=== PATIENT | male | born 1975 | race Caucasian/White ===

== ENCOUNTER 2018-09-17 14:46 | Inpatient (IN) | payer MEDICAID ==
[~2018-09-17] VITALS: Ht 162.6 cm; Wt 78.2 kg
[~2018-09-17 14:46] MED LIST: ACET325T33 PO; FOLI-49 PO; PANT40TA3 PO; PROP20TA4 PO; THIA100T10 PO
[2018-09-17 15:09] VITALS: Ht 162.6 cm; Wt 78.2 kg
[2018-09-17] MEDS ORDERED: ONDANSETRON 4 MG INJ IM STA (15:22)
--- NOTE | 2018-09-17 15:24 | ERD ---
ER Documentation Chief Complaint Chief Complaint BIB RA 81: ETOH intoxication found on streets. homeless. HPI 43-year-old man with history of alcoholism brought in by EMS for public intoxic ation. Patient admits to drinking alcohol today and denies suicidal homicidal ideation. Patient denies chest pain or shortness of breath but did have vomiting at the scene and was transported here without further complications. ROS All systems reviewed and are negative except as per history of present illness. Medications Home Meds Active Scripts Ondansetron Hcl* (Zofran*) 4 Mg Tablet, 4 MG PO Q6H PRN for NAUSEA AND OR VOMITING, #12 TAB Prov:HERON FRANCIS MD 09/17/18 Pantoprazole* (Protonix*) 40 Mg Tablet.dr, 40 MG PO DAILY, #30 TAB 2 Refills Prov:STEPHANIE PRINCE. 06/20/18 Propranolol Hcl* (Propranolol Hcl*) 20 Mg Tablet, 20 MG PO TID, #90 TAB 3 [facility] 06/20/18 Thiamine* (Thiamine*) 100 Mg Tablet, 100 MG PO DAILY, #30 TAB 2 Refills Prov:STEPHANIE PRINCE . 06/20/18 Folic Acid* (Folic Acid*) 1 Mg Tablet, 1 MG PO DAILY, #30 TAB 2 Refills Prov[facility]. 06/20/18 Acetaminophen* (Tylenol*) 325 Mg Tablet, 650 MG PO Q6H PRN for PAIN LEVEL 1-3 OR FEVER, #30 TAB Prov:STEPHANIE PRINCE . 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 Neck: Full range of motion. No meningismus. Resp: Clear to auscultation bilaterally Cardio: Tachycardic and regular, Abd: Soft, non tender, non distended. No guarding or rigidity to the abdomen Skin: No petechiae or rashes Back: No midline or flank tenderness Ext: No cyanosis, or edema Neur: Awake and alert x3, no focal deficits or facial asymmetry Psych: Normal Mood and Affect Results 24 hrs Current Medications Medications Dose Sig/Sandi Start Time Status Last (Trade) Ordered Route PRN Stop Time Admin Dose Reason Admin Ondansetron 8 mg ONCE STAT 09/17/18 DC 09/17/18 HCl (Zofran IM 15:22 15:41 Inj) 09/17/18 15:23 Procedures/MDM I administered Zofran 8 mg IM x1 observation Note: Time: 4.0 hours Family Hx: No Hypertension Evaluation: Multiple exams showed improving symptoms and no evidence of worsening mental status or continued vomiting. Differential diagnoses considered, included but not limited to acute coronary syndrome, pulmonary embolism, aortic dissection, abdominal aortic aneurysm, sepsis, stroke, meningitis, encephalitis, pneumonia, appendicitis, cholecystitis, bowel obstruction, pyelonephritis, nephrolithiasis, cystitis, as well as metabolic, hematologic, and electrolyte abnormalities. As well as abscess, cellulitis, fractures, and dislocations. Patient feels much better at this time, and vital signs are normal, symptoms have improved. I did give strict instructions to return to the ED if symptoms continue or worsen, patient will otherwise follow-up with primary care physician. Patient understood instructions and agreed to plan. Disclaimer: Inadvertent spelling and grammatical errors are likely due to EHR/dictation software use and do not reflect on the overall quality of patient care. Also, please note that the electronic time recorded on this note does not necessarily reflect the actual time of the patient encounter. Departure Diagnosis: Primary Impression: Alcoholic intoxication Complication of substance-induced condition: uncomplicated Qualified Codes: F10.920 - Alcohol use, unspecified with intoxication, uncomplicated Additional Impression: Vomiting Vomiting type: unspecified Vomiting Intractability: non-intractable Nausea presence: with nausea Qualified Codes: R11.2 - Nausea with vomiting, unspecified Condition: Good HERON FRANCIS MD Sep 17, 2018 15:24
[2018-09-17] MEDS ORDERED: ONDA4TAB8 PO (15:58)
[2018-09-18] VITALS (10 sets, daily range): BP systolic 134–143; BP diastolic 68–79; PULSE 101–126; RESP 18; BMI 29.6
--- NOTE | 2018-09-18 03:30 | EN ---
Date/Time of Note Date/Time of Note DATE: 09/18/18 TIME: 03:29 ER Progress Note I wanted to evaluate this patient and he had been here for approximately 12 hours. On my evaluation the patient was tachycardic, and was tremulous. I attempted to ambulate the patient multiple times however he said he cannot walk because he was extremely weak and was having pain in his left leg. X-rays were obtained and do not show any signs of fracture. The patient's blood alcohol level is still 220 despite being here for greater than 12 hours. This patient has been admitted in the past for alcohol withdrawal and he remains tachycardic and tremulous. The patient was given Ativan and IV fluids and will benefit from inpatient hospitalization for acute alcohol withdrawal. Const: Mild distress, tremulous Head: [Atraumatic] Eyes: [Normal Conjunctiva] ENT: [Normal External Ears, Nose and Mouth.] Neck: [Full range of motion. No meningismus.] Resp: [Clear to auscultation bilaterally] Cardio: Tachycardic, no murmurs Abd: [Soft, non tender, non distended. Normal bowel sounds] Skin: [No petechiae or rashes] Back: [No midline or flank tenderness] Ext: [No cyanosis, or edema] Neur: [Awake and alert] Psych: Agitated affect The patient will be admitted to panel physician Dr. Guadarrama Critical Care: Excluding all billable procedures Time: 44 minutes Treatments/Evaluations: Close monitoring and treatment of unstable vital signs, cardiorespiratory, and neurologic status, while maintaining tight balance of fluid, respiratory, and cardiac interventions. Admitting diagnosis: Acute alcohol withdrawal LEON REID DO Sep 18, 2018 03:30
[2018-09-18] MEDS ORDERED: SOD CHLORIDE 0.9% 1,000 ML IV STA (03:45)
[2018-09-18] MEDS ORDERED: DEXTROSE 5%-0.45% NACL 1,000 ML IV SCH (04:18)
[2018-09-18] MEDS ORDERED: LORAZEPAM 2 MG INJ IV ONE (04:30)
[2018-09-18] MEDS ORDERED: ACETAMINOPHEN 325 MG TAB PO PRN (04:30)
[2018-09-18] MEDS ORDERED: ONDANSETRON 4 MG INJ IV PRN (04:30)
[2018-09-18] MEDS: SOD CHLORIDE 0.9% 1,000 ML IV SCH ×3 (06:55→23:13)
--- NOTE | 2018-09-18 06:56 | HP ---
Date/Time of Note Date/Time of Note DATE: 09/18/18 TIME: 06:50 Assessment/Plan VTE Prophylaxis SCD applied (from Nsg): Yes Pharmacological prophylaxis: NA/contraindicated Pharm contraindication: thrombocytopenia Lines/Catheters IV Catheter Type (from Nrsg): Saline Lock Assessment/Plan Assessment/Plan 1. Alcoholic intoxication -Monitor for withdrawal -Banana bag alternating with IV fluid -Librium -As needed Ativan 2. Generalized and lower extremity weakness. X-ray of lower extremities negative -Likely related to decompensation and myopathy caused by alcohol -Physical therapy 3. Decompensated alcoholic liver cirrhosis, with pancytopenia and previous labs showing coagulopathy -Treat his alcohol intoxication for now 4. Pancytopenia: Alcohol related -No need for transfusion at this time 5. Alcohol abuse and homelessness -Social work consult -Abstinence from alcohol will be reinforced throughout hospitalization Result Diagram: 09/18/18 0347 09/18/187 Results 24hrs Laboratory Tests Test 09/18/18 03:47 White Blood Count 4.6 #L Red Blood Count 4.22 L Hemoglobin 11.1 L Hematocrit 33.7 L Mean Corpuscular Volume 79.9 L Mean Corpuscular Hemoglobin 26.3 L Mean Corpuscular Hemoglobin Concent 32.9 Red Cell Distribution Width 17.6 H Platelet Count 36 #L Mean Platelet Volume Immature Granulocytes % 0.400 Neutrophils % 66.1 Lymphocytes % 24.5 Monocytes % 8.2 Eosinophils % 0.4 Basophils % 0.4 Nucleated Red Blood Cells % 0.0 Immature Granulocytes # 0.020 Neutrophils # 3.1 Lymphocytes # 1.1 Monocytes # 0.4 Eosinophils # 0.0 Basophils # 0.0 Nucleated Red Blood Cells # 0.0 Sodium Level 139 Potassium Level 3.9 Chloride Level 103 Carbon Dioxide Level 24 Anion Gap 12 Blood Urea Nitrogen 14 Creatinine 0.50 L Est Glomerular Filtrat Rate mL/min > 60 Glucose Level 92 Calcium Level 7.9 L Total Bilirubin 2.1 H Direct Bilirubin 0.40 H Indirect Bilirubin 1.7 H Aspartate Amino Transf (AST/SGOT) 203 H Alanine Aminotransferase (ALT/SGPT) 101 H Alkaline Phosphatase 224 H Total Protein 8.0 Albumin 3.5 Globulin 4.50 H Albumin/Globulin Ratio 0.77 Salicylates Level < 1.0 L Acetaminophen Level < 10.0 L Ethyl Alcohol Level 221.0 H HPI/ROS Admit Date/Time Admit Date/Time Sep 18, 2018 at 04:18 Hx of Present Illness 43-year-old homeless male with known history of alcohol abuse, alcoholic liver cirrhosis and EtOH related pancytopenia. Patient was found intoxicated on the street. He complains of abdominal pain, vomiting, generalized weakness and difficulty with ambulation. Currently patient is drowsy/lethargic, but somehow arousable. He complains of headache and generalized weakness and abdominal pain. He also reported having had vomiting. He said he has been drinking almost on a daily basis. The patient has been admitted here and had multiple ER visits related to alcohol. Last hospitalization was about 3 months ago. In the ER, blood alcohol level was found to be elevated. He is still pancyt openic with abnormal liver chemistries. Patient was given IV fluid and Ativan in the ER. PMH/Family/Social Past Medical History Medical History: other (See HPI) Medications Current Medications Dextrose/Sodium Chloride 1,000 ml @ 80 mls/hr [id number] IV ; Start 09/18/18 at 04:18; Stop 09/18/18 at 16:47 Ondansetron HCl (Zofran Inj) 4 mg ER BRIDGE PRN IV NAUSEA AND/OR VOMITING; Start 09/18/18 at 04:30; Stop 09/19/18 at 04:29 Acetaminophen (Tylenol Tab) 650 mg ER BRIDGE PRN PO MILD PAIN(1-3)OR ELEVATED TEMP; Start 09/18/18 at 04:30; Stop 09/19/18 at 04:29 Sodium Chloride 1,000 ml @ 125 mls/hr Q8H IV ; Start 09/18/18 at 06:38 IV Flush (NS 3 ml) 3 ml PER PROTOCOL IV ; Start 09/18/18 at 07:00 Ondansetron HCl (Zofran Inj) 4 mg Q6H PRN IV NAUSEA AND/OR VOMITING; Start 09/18/18 at 07:00 Acetaminophen (Tylenol Tab) 650 mg Q6H PRN PO PAIN LEVEL 1-3 OR FEVER; Start 09/18/18 at 07:00 Multivitamins 10 ml/Thiamine HCl 100 mg/Folic Acid 1 mg/Sodium Chloride 1,011.2 ml @ 125 mls/ hr DAILY@09 IVPB ; Start 09/18/18 at 09:00; Stop 09/22/18 at 09:00; Status UNV Thiamine HCl (Vitamin B1) 100 mg DAILY PO ; Start 09/18/18 at 09:00 Lorazepam (Ativan) 1 mg Q3H PRN IV ANXIETY; Start 09/18/18 at 07:00 Lorazepam (Ativan) 2 mg Q2H PRN IV ETOH W/D; Start 09/18/18 at 07:00 Chlordiazepoxide (Librium) 75 mg TID PO ; Start 09/18/18 at 09:00 Coded Allergies: No Known Allergy (Unverified , 09/17/18) Past Surgical History Past Surgical Hx: other (See HPI) Family History Significant Family History: no pertinent family hx Social History Alcohol Use: heavy Smoking Status: Never smoker Drug Use: other (Unknown) Exam/Review of Systems Vital Signs Vitals Vital Signs Date Temp Pulse Resp B/P (MAP) Pulse Ox O2 O2 Flow FiO2 Time Delivery Rate 09/18/18 98.4 110 18 139/79 99 Room Air 05:25 (99) Exam Constitutional: other (Lethargic, but arousable) Head: other (Crusted lesion on the middle of the forehead/frontal scalp) Respiratory: clear to auscultation, normal air movement Cardiovascular: other (Tachycardic regular rhythm) Gastrointestinal: soft Extremities: normal pulses NIEVES SOLOMON MD Sep 18, 2018 06:56
[2018-09-18] MEDS ORDERED: NACL 0.9% 3 ML SYG IV SCH (07:00)
[2018-09-18] MEDS ORDERED: LORAZEPAM 2 MG INJ IV PRN ×2 (07:00)
--- NOTE | 2018-09-18 07:38 | NUR ---
RN END OF SHIFT NOTE PATIENT ALERT AND ORIENTED X 4, NEW ADMISSION, DENIED PAIN, ABLE TO REPOSITION SELF, VITAL SIGNS WITHIN NORMAL LIMIT, RUNNING NS AT 125 ML PER HOUR AT THIS TIME. 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 BED IN THE LOWEST POSITION WITH BRAKES ENGAGED, HOURLY ROUNDING AND BED ALARM IN PLACE. ENDORSED TO DAY SHIFT RN.
[2018-09-18] MEDS: THIAMINE 100 MG TAB PO SCH (08:18)
[2018-09-18] MEDS: CHLORDIAZEPOXIDE 25 MG CAP PO SCH ×3 (08:18→23:12)
[2018-09-18] MEDS: MULTIVITAMINS 10 ML, FOLIC ACID 1 MG in SOD CHLORIDE 0.9% 1,000 ML IVPB SCH (10:05)
--- NOTE | 2018-09-18 10:32 | NUR ---
SS Note: SS Consult Pt's a 43 y/o male w/ PMH of ETOH, presenting w/ Alchol Intoxication. Pt's A/OX4, ambulatory and resting quietly in bed. Pt's homeless x1 month, makes own medical decisions and contracts for safety. Pt has [employer] insurance, denies having income, AD, DPOA/DME's, drinks numerous beers throughout the day w/ a few shots of whiskey. Pt has a sister, Kell that lives in [place], [place] but, cannot reside w/ her, contacts her from time to time. Pt plans to return to previous living arrangement upon d/c, transportation will be provided by bus, SWer will assist pt w/ acquiring clean clothes.
--- NOTE | 2018-09-18 11:24 | PN ---
Date/Time of Note Date/Time of Note DATE: 09/18/18 TIME: 11:20 Assessment/Plan VTE Prophylaxis Risk score (from Ns)>0 risk: 2 SCD applied (from Ns): Yes Pharmacological prophylaxis: other Lines/Catheters [facility] Per[facility] IV Assessment/Plan Hospital Course S: No acute events overnight, still on banana bag, taking Librium. O: VS - see below PE: Gen: Mild distress, lying in bed Head: Atraumatic Eyes: Normal Conjunctiva ENT: Normal External Ears, Nose and Mouth. Neck: Supple Resp: Clear to auscultation bilaterally Cardio: S1, S2, no murmurs Abd: Soft, non tender, non distended. Normal bowel sounds Ext: No lower extremity edema bilaterally Neur: No focal deficits Assessment/Plan: 43-year-old male who presents with: 1. Alcoholic intoxication -BAL significantly elevated on admission -Monitor for withdrawal -Continue banana bag alternating with IV fluid -Continue Librium and as needed Ativan 2. Generalized and lower extremity weakness. X-ray of lower extremities negative-Likely related to decompensation and myopathy caused by alcohol -We will obtain physical therapy consult 3. Decompensated alcoholic liver cirrhosis, with pancytopenia and previous labs showing coagulopathy -Treat his alcohol intoxication for now, monitor 4. Pancytopenia: Alcohol related-No need for transfusion at this time -Monitor 5. Alcohol abuse and homelessness -Follow-up results from social work consult -Abstinence from alcohol will be reinforced throughout hospitalization Result Diagram: 09/18/18 0347 09/18/18 0347 Results 24hrs Laboratory Tests Test 09/18/18 03:47 White Blood Count 4.6 #L Red Blood Count 4.22 L Hemoglobin 11.1 L Hematocrit 33.7 L Mean Corpuscular Volume 79.9 L Mean Corpuscular Hemoglobin 26.3 L Mean Corpuscular Hemoglobin Concent 32.9 Red Cell Distribution Width 17.6 H Platelet Count 36 #L Mean Platelet Volume Immature Granulocytes % 0.400 Neutrophils % 66.1 Lymphocytes % 24.5 Monocytes % 8.2 Eosinophils % 0.4 Basophils % 0.4 Nucleated Red Blood Cells % 0.0 Immature Granulocytes # 0.020 Neutrophils # 3.1 Lymphocytes # 1.1 Monocytes # 0.4 Eosinophils # 0.0 Basophils # 0.0 Nucleated Red Blood Cells # 0.0 Sodium Level 139 Potassium Level 3.9 Chloride Level 103 Carbon Dioxide Level 24 Anion Gap 12 Blood Urea Nitrogen 14 Creatinine 0.50 L Est Glomerular Filtrat Rate mL/min > 60 Glucose Level 92 Calcium Level 7.9 L Total Bilirubin 2.1 H Direct Bilirubin 0.40 H Indirect Bilirubin 1.7 H Aspartate Amino Transf (AST/SGOT) 203 H Alanine Aminotransferase (ALT/SGPT) 101 H Alkaline Phosphatase 224 H Total Protein 8.0 Albumin 3.5 Globulin 4.50 H Albumin/Globulin Ratio 0.77 Salicylates Level < 1.0 L Acetaminophen Level < 10.0 L Ethyl Alcohol Level 221.0 H Exam/Review of Systems Vital Signs Vitals Vital Signs Date Temp Pulse Resp B/P (MAP) Pulse Ox O2 O2 Flow FiO2 Time Delivery Rate 09/18/18 97.4 105 18 136/69 96 Room Air 11:13 (91) Medications Medications Current Medications Sodium Chloride 1,000 ml @ 125 mls/hr Q8H IV Last administered on 09/18/18at 06:55; Admin Dose 125 MLS/HR; Start 09/18/18 at 06:38 IV Flush (NS 3 ml) 3 ml PER PROTOCOL IV ; Start 09/18/18 at 07:00 Ondansetron HCl (Zofran Inj) 4 mg Q6H PRN IV NAUSEA AND/OR VOMITING; Start 09/18/18 at 07:00 Acetaminophen (Tylenol Tab) 650 mg Q6H PRN PO PAIN LEVEL 1-3 OR FEVER; Start 09/18/18 at 07:00 Multivitamins 10 ml/Folic Acid 1 mg/Sodium Chloride 1,010.2 ml @ 125 mls/ hr DAILY@09 IVPB Last administered on 09/18/18at 10:05; Admin Dose 125 MLS/HR; Start 09/18/18 at 09:00; Stop 09/22/18 at 09:00 Thiamine HCl (Vitamin B1) 100 mg DAILY PO Last administered on 09/18/18at 08:18; Admin Dose 100 MG; Start 09/18/18 at 09:00 Lorazepam (Ativan) 1 mg Q3H PRN IV ANXIETY; Start 09/18/18 at 07:00 Lorazepam (Ativan) 2 mg Q2H PRN IV ETOH W/D; Start 09/18/18 at 07:00 Chlordiazepoxide (Librium) 75 mg TID PO Last administered on 09/18/18at 08:18; Admin Dose 75 MG; Start 09/18/18 at 09:00 CARMEN JIMÉNEZ Sep 18, 2018 11:24
[2018-09-19] VITALS (12 sets, daily range): BP systolic 131–175; BP diastolic 70–89; PULSE 91–127; RESP 18–19
--- NOTE | 2018-09-19 06:29 | NUR ---
Pt. had an uneventful night, no complaints, no anxiety, no s/s of withdrawal, S. tach 120- 130 , the rest of the V/S are normal, SR. Lab called for platelet ct. this AM of 20,000, texted to Dr. Guadarrama; no bleeding noted. Addendum: 09/19/18 at 0653 by CHEY HONG RN Correction : Baltazar : S Tach 120 - 130.
[2018-09-19] MEDS: SOD CHLORIDE 0.9% 1,000 ML IV SCH ×3 (06:38→17:44)
[2018-09-19] MEDS: THIAMINE 100 MG TAB PO SCH (09:29)
[2018-09-19] MEDS: CHLORDIAZEPOXIDE 25 MG CAP PO SCH ×3 (09:29→20:37)
[2018-09-19] MEDS: MULTIVITAMINS 10 ML, FOLIC ACID 1 MG in SOD CHLORIDE 0.9% 1,000 ML IVPB SCH (09:29)
--- NOTE | 2018-09-19 09:40 | NUR ---
Nurse note pt working with the physical therapist, up and out of bed HR up to 140s when the laboratory monitor called me checked on the pt. he states he is okay Dr. Stoner aware also notified Dr. Stoner regarding platelet at 20 today
--- NOTE | 2018-09-19 10:36 | NUR ---
PT [facility] Patient: Darnell Peraza : 1975 Age/Sex: 43/M Unit#: [id number] Room/Bed: [facility]/A User: Gurdeep Malhotra PT Date: 09/19/18 09:40 Type: PT Technical Record Therapy day number 1 Evaluation Start Time 09:40 Evaluation Total Time 0 min Subjective Current complaint of pain Pain Scale NUMERIC Pain Intensity 5 (0-10) Patient Stated Goal for Pain Relief 0 (0-10) Pain Level Comment abdominal pain, B thigh pain Pre Treatment Vital Signs Stable Yes - 135/69, 117bpm. 97%O2 sats on RA Exercise Assessment Label Bilat Lower Extremity Exercise Type Active ROM Additional Exercise Comments semi-supine APs, heel slides Supine to Sit Moderate Assist Transfer Sit to Stand Ability Moderate Assist Bed Mobility Sit to Supine Moderate Assist Sitting Tolerance 15 min Additional Mobility Comments frequent verbal cues Patient uses wheelchair Not Applicable Additional Gait Comments TBA Static Sitting Balance Fair plus Dynamic Sitting Balance Fair Standing Static Balance Fair minus Additional Balance Assessments Comments FWW Safety Judgement Poor Activity Tolerance Poor Equipment Present A pump IV pump Post Treatment Pain Intensity 5 0-10 Variance Documentation SEE PT EVAL Additional Post Treatment Comment vomiting PT Technical Record Comment PT EVAL Pt is a 43 yo M with PMH of alcohol abuse, liver cirrhosis, EtOH related pancytopenia who was found intoxicated on street with complaints of abdominal pain, vomitting, and generalized weakness with difficulty ambulating. Pt received in 6W, telemetry. Precautions: Fall precautions PLOF: Per EMR, pt is homeless. Pt reports he was ambulatory without AD prior to admission. CLOF: FLAKITO Villegas cleared pt for PT evaluation. Pt received semi-supine in bed sleeping, easily roused, vitals assessed and stable. Communication via phone pharmaceutical operator (YI). Pt appeared lethargic throughout, difficulty keeping eyes open. Noted with strength assessment pt reported "no strength" with notable strength deficits B (<3/5), R-side more limited than L. Bed mobility, transfer and balance assessment as above. Noted following 2nd attempt at sit to stand, pt proceeded to dry heave and vomit, HR noted to increase to as high as 160. Pt returned to bed, all needs in reach, no signs of distress, HR at 125 bpm, bed alarm activated. RN notified of pt's status. Recommendation: Pt tolerated PT evaluation poorly, having bout of emesis following sit to stand attempt. Pt demonstrates generalized weakness moderately limiting bed mobility and ability to transfer. Unable to attempt gait at this time due to weakness. Pt will benefit from additional skilled PT services during hospital stay for further strengthening and to maximize independence prior to d/c. D/c recommendation per social work/case management. Pt may need FWW. Plan: Continue c PT POC (Daily x 5)
--- NOTE | 2018-09-19 14:59 | PN ---
Date/Time of Note Date/Time of Note DATE: 09/19/18 TIME: 14:54 Assessment/Plan VTE Prophylaxis Risk score (from [facility] [place])>0 risk: 1 SCD applied (from [facility] [place]): Yes Pharmacological prophylaxis: NA/contraindicated Pharm contraindication: thrombocytopenia Lines/Catheters IV Catheter Type (from [facility]): Peripheral IV Assessment/Plan Hospital Course # Alcoholic intoxication - BAL significantly elevated on admission - Patient was started on Librium on admission; will begin taper. - Currently no S/Sx of withdrawal # Generalized and lower extremity weakness. 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 # Decompensated alcoholic liver cirrhosis, with pancytopenia and previous labs showing coagulopathy - Advised patient on alcohol cessation. # Pancytopenia: Alcohol/cirrhosis related -No need for transfusion at this time # Alcohol abuse and homelessness -Follow-up results from social work consult -Abstinence from alcohol will be reinforced throughout hospitalization Result Diagram: 09/19/18 0522 09/19/18 0522 Results 24hrs Laboratory Tests Test 09/19/18 05:22 White Blood Count 2.1 #L Red Blood Count 3.97 L Hemoglobin 10.3 L Hematocrit 32.4 L Mean Corpuscular Volume 81.6 L Mean Corpuscular Hemoglobin 25.9 L Mean Corpuscular Hemoglobin Concent 31.8 L Red Cell Distribution Width 17.1 H Platelet Count 20 #*L Mean Platelet Volume Immature Granulocytes % 0.500 H Neutrophils % Segmented Neutrophils % (Manual) 73 Band Neutrophils % (Manual) 2 Lymphocytes % Lymphocytes % (Manual) 10 L Monocytes % Monocytes % (Manual) 9 Eosinophils % Eosinophils % (Manual) 3 Basophils % Basophils % (Manual) 1 Myelocytes % (Manual) 2 H Nucleated Red Blood Cells % 0.0 Immature Granulocytes # 0.010 Neutrophils # Neutrophils # (Manual) 1.5 L Band Neutrophils # 0.0 Lymphocytes (Manual) 0.2 L Lymphocytes # Monocytes # Monocytes # (Manual) 0.1 L Eosinophils # Basophils # Basophils # (Manual) 0.0 Myelocytes # 0.0 Nucleated Red Blood Cells # Platelet Estimate SIG DECREASED Giant Platelets 1 H Polychromasia 3+ Anisocytosis 1+ Prothrombin Time 18.5 H Prothrombin Time Ratio 1.4 INR International Normalized Ratio 1.53 Activated Partial Thromboplast Time 37.8 H Sodium Level 135 Potassium Level 3.6 Chloride Level 104 Carbon Dioxide Level 22 Anion Gap 9 Blood Urea Nitrogen 11 Creatinine 0.44 L Est Glomerular Filtrat Rate mL/min > 60 Glucose Level 84 Calcium Level 7.9 L Phosphorus Level 3.4 Magnesium Level 1.8 Total Bilirubin 2.2 H Direct Bilirubin 0.30 H Indirect Bilirubin 1.9 H Aspartate Amino Transf (AST/SGOT) 167 H Alanine Aminotransferase (ALT/SGPT) 90 H Alkaline Phosphatase 193 H Total Protein 7.2 Albumin 3.0 L Globulin 4.20 H Albumin/Globulin Ratio 0.71 Subjective 24 Hr Interval Summary Free Text/Dictation No acute overnight events. Patient sitting up in bed feeding self lunch. Exam/Review of Systems Vital Signs Vitals Vital Signs Date Temp Pulse Resp B/P (MAP) Pulse Ox O2 O2 Flow FiO2 Time Delivery Rate 09/19/18 104 12:00 09/19/18 98.9 18 138/74 98 11:19 (95) 09/18/18 Room Air 15:10 Intake and Output 09/18/18 09/18/18 09/19/18 1515:00 23:00 07:00 IntakeIntake Total 375 ml 1625 ml 1500.2 ml OutputOutput Total 500 ml 570 ml BalanceBalance 375 ml 1125 ml 930.2 ml Exam Gen: Overweight man in no acute distress, very poorly groomed, sitting up in bed eating lunch. Head: No abrasions, atraumatic. Eyes: Mild icterus, no injection. ENT: Normal External Ears, Nose and Mouth. Resp: Clear to auscultation bilaterally Cardio:S1, S2, no murmurs Abd: Soft, non tender, non distended. Normal bowel sounds Ext: No lower extremity edema bilaterally Neuro: No tongue fasciculations or tremors. Medications Medications Current Medications Sodium Chloride 1,000 ml @ 125 mls/hr Q8H IV Last administered on 09/18/18at 23:13; Admin Dose 125 MLS/HR; Start 09/18/18 at 06:38 IV Flush (NS 3 ml) 3 ml PER PROTOCOL IV ; Start 09/18/18 at 07:00 Ondansetron HCl (Zofran Inj) 4 mg Q6H PRN IV NAUSEA AND/OR VOMITING; Start 09/18/18 at 07:00 Acetaminophen (Tylenol Tab) 650 mg Q6H PRN PO PAIN LEVEL 1-3 OR FEVER; Start 09/18/18 at 07:00 Multivitamins 10 ml/Folic Acid 1 mg/Sodium Chloride 1,010.2 ml @ 125 mls/ hr DAILY@09 IVPB Last administered on 09/19/18at 09:29; Admin Dose 125 MLS/HR; Start 09/18/18 at 09:00; Stop 09/22/18 at 09:00 Thiamine HCl (Vitamin B1) 100 mg DAILY PO Last administered on 09/19/18at 09:29; Admin Dose 100 MG; Start 09/18/18 at 09:00 Lorazepam (Ativan) 1 mg Q3H PRN IV ANXIETY; Start 09/18/18 at 07:00 Lorazepam (Ativan) 2 mg Q2H PRN IV ETOH W/D; Start 09/18/18 at 07:00 Chlordiazepoxide (Librium) 75 mg TID PO Last administered on 09/19/18at 12:30; Admin Dose 75 MG; Start 09/18/18 at 09:00 BRISA KIMBLE MD Sep 19, 2018 14:59
--- NOTE | 2018-09-19 17:00 | NUR ---
endorse to FLAKITO Henry pt is stable Addendum: 09/19/18 at 1811 by LORRIE NASH RN wrong pt
[2018-09-19] MEDS: ONDANSETRON 4 MG INJ IV PRN (17:48)
--- NOTE | 2018-09-19 19:42 | NUR ---
EOSS pt is alert and orientedx4, on room air, stable hourly rounding done pt c/o nausea once and zofran given, no other complaints throughout the day bed alarm on IV fluids running endorse to oncoming shift
[2018-09-20] VITALS (12 sets, daily range): BP systolic 115–137; BP diastolic 63–77; PULSE 96–115; RESP 18–20
[2018-09-20] MEDS: SOD CHLORIDE 0.9% 1,000 ML IV SCH ×3 (03:52→17:54)
--- NOTE | 2018-09-20 06:35 | NUR ---
EOSS N: Librium 50 therapy continued. A&Ox2-3, lethargic, arousable to touch/verbal. R: RA CV: NSR, ST. Loud holosystolic murmur. GI/: Pt is continent, but was found with chux covered in urine. Incontinent intermittently? MS: Pt remains in bed, able to turn self. Too weak for ambulation at this time, most likely r/t myopathy secondary to ETOH. POC: IV fluid continued. PT/SW consults. Alcohol detox, W/D treatment. Vitamin therapy. All of patient's needs attended to. Bed in locked and low position. Bed alarm on at all times. Will endorse to AM nurse.
[2018-09-20] MEDS: CHLORDIAZEPOXIDE 25 MG CAP PO SCH ×2 (08:47→21:28)
[2018-09-20] MEDS: MULTIVITAMINS 10 ML, FOLIC ACID 1 MG in SOD CHLORIDE 0.9% 1,000 ML IVPB SCH (08:47)
[2018-09-20] MEDS: THIAMINE 100 MG TAB PO SCH (08:47)
--- NOTE | 2018-09-20 14:00 | NUR ---
PT NOTE [facility] Patient: Darnell Peraza : 1975 Age/Sex: 43/M Unit#: [id number] Room/Bed: [employer]/A User: Narcisa Landis PTA Date: 09/20/18 14:00 Type: PT Technical Record Therapy day number 2 Subjective Current complaint of pain Pain Scale NUMERIC Pain Intensity 5 (0-10) Patient Stated Goal for Pain Relief 0 (0-10) Pain Level Comment "everywhere" Pre Treatment Vital Signs Stable Yes - 137/71 91% on RA 117bpm Transfer Training Start Time 13:30 Supine to Sit Contact Guard Assist Transfer Sit to Stand Ability Minimum Assist Bed Mobility Sit to Supine Minimum Assist Transfer Training End Time 13:45 Total Transfer Training Time 15 min (8-127) Patient uses wheelchair Not Applicable Gait Training Start Time 13:45 Gait Assist Levels Minimum Assist Assistive Devices Front Wheel Walker Ambulation Distance 10 feet Additional Gait Comments slow farshad, dec step length/stride, low foot clearance, absent heel-toe Gait Training End Time 14:00 Total Gait Training Treatment Time 15 min (8-127) Static Sitting Balance Fair plus Dynamic Sitting Balance Fair Standing Static Balance Fair minus Dynamic Standing Balance Fair minus Additional Balance Assessments Comments FWW Safety Judgement Poor Activity Tolerance Fair Equipment Present A pump IV pump Post Treatment Pain Intensity 5 0-10 Total Treament Time 30 min (8-127) Total Minutes 30 Total Units 2 PT Technical Record Comment S: FLAKITO Villegas cleared pt for PT. Pt c/o 5/10 pain, "everywhere." Agreeable to tx O: Received pt sleeping in semifowler. VC/TC to rouse. See above for assist levels. Pretx VS; 137/71 91% 117bpm. Pt very slow moving during mobility. VS sitting EOB; 119/68 96% 119bpm. Gait training x 10' and presented with slow farshad, decreased step length/stride, low foot clearance, and absent heel-toe sequencing. Instructed pt on proper gait sequencing, poor return. REturned pt back to room/bed due to pain. Positioned pt to comfort in semifowler. Call light/phone within reach. Bed alarm on. Needs met. RN informed of pt status and PT activities A: Fair tolerance to tx. Improved assistance throughout from ModA to Min/CGA. Tolerated gait training P: Continue w/ POC and progress as tolerated
[2018-09-20] MEDS: ACETAMINOPHEN 325 MG TAB PO PRN (14:02)
--- NOTE | 2018-09-20 14:12 | PN ---
Date/Time of Note Date/Time of Note DATE: 09/20/18 TIME: 14:10 Assessment/Plan VTE Prophylaxis Risk score (from [facility] [place])>0 risk: 1 SCD applied (from [facility] [place]): Yes Pharmacological prophylaxis: NA/contraindicated Pharm contraindication: thrombocytopenia Lines/Catheters IV C[facility]ter Type (from [facility]): Peripheral IV Assessment/Plan Hospital Course # Alcoholic intoxication - BAL significantly elevated on admission - Patient was started on Librium on admission; now tapering. - Currently no S/Sx of withdrawal # Generalized and lower extremity weakness. 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 # Decompensated alcoholic liver cirrhosis, with pancytopenia and previous labs showing coagulopathy - Advised patient on alcohol cessation. # Pancytopenia: Alcohol/cirrhosis related -No need for transfusion at this time # Alcohol abuse and homelessness -Abstinence from alcohol will be reinforced throughout hospitalization Dispo: Able to walk 10 feet with PT this afternoon. Anticipate discharge tomorrow. Result Diagram: 09/19/1852109/19/18521 Subjective 24 Hr Interval Summary Free Text/Dictation No acute overnight events. Patient lying flat in bed. Exam/Review of Systems Vital Signs Vitals Vital Signs Date Temp Pulse Resp B/P (MAP) Pulse Ox O2 O2 Flow FiO2 Time Delivery Rate 09/20/18 100 12:00 09/20/18 98.8 18 132/76 96 Room Air 11:33 (94) Intake and Output 09/19/18 09/19/18 09/20/18 1515:00 23:00 07:00 IntakeIntake Total 1700 ml 1625 ml OutputOutput Total 600 ml BalanceBalance 1100 ml 1625 ml Exam Gen: Overweight man in no acute distress, very poorly groomed, sitting up in bed eating lunch. Head: No abrasions, atraumatic. Eyes: Mild icterus, no injection. ENT: Normal External Ears, Nose and Mouth. Resp: Clear to auscultation bilaterally Cardio:S1, S2, no murmurs Abd: Soft, non tender, non distended. Normal bowel sounds Ext: No lower extremity edema bilaterally Neuro: No tongue fasciculations or tremors. Medications Medications Current Medications Sodium Chloride 1,000 ml @ 125 mls/hr Q8H IV Last administered on 09/20/18at 03:52; Admin Dose 125 MLS/HR; Start 09/18/18 at 06:38 IV Flush (NS 3 ml) 3 ml PER PROTOCOL IV ; Start 09/18/18 at 07:00 Ondansetron HCl (Zofran Inj) 4 mg Q6H PRN IV NAUSEA AND/OR VOMITING Last administered on 09/19/18at 17:48; Admin Dose 4 MG; Start 09/18/18 at 07:00 Acetaminophen (Tylenol Tab) 650 mg Q6H PRN PO PAIN LEVEL 1-3 OR FEVER Last administered on 09/20/18at 14:02; Admin Dose 650 MG; Start 09/18/18 at 07:00 Multivitamins 10 ml/Folic Acid 1 mg/Sodium Chloride 1,010.2 ml @ 125 mls/ hr DAILY@09 IVPB Last administered on 09/20/18at 08:47; Admin Dose 125 MLS/HR; Start 09/18/18 at 09:00; Stop 09/22/18 at 09:00 Thiamine HCl (Vitamin B1) 100 mg DAILY PO Last administered on 09/20/18at 08:47; Admin Dose 100 MG; Start 09/18/18 at 09:00 Lorazepam (Ativan) 1 mg Q3H PRN IV ANXIETY; Start 09/18/18 at 07:00 Lorazepam (Ativan) 2 mg Q2H PRN IV ETOH W/D; Start 09/18/18 at 07:00 Chlordiazepoxide (Librium) 50 mg BID PO Last administered on 09/20/18 08:47; Admin Dose 50 MG; Start 09/19/18 at 21:00 BRISA KIMBLE MD Sep 20, 2018 14:12
--- NOTE | 2018-09-20 18:31 | NUR ---
EOSS pt is alert and orientedx4, on room air, stable he worked with physical therapy today pending d/c for tomorrow per Dr. Stoner no new issues at this time hourly rounding done
[2018-09-21] VITALS (12 sets, daily range): BP systolic 126–136; BP diastolic 67–82; PULSE 78–115; RESP 18–20
[2018-09-21] MEDS: SOD CHLORIDE 0.9% 1,000 ML IV SCH (02:59)
--- NOTE | 2018-09-21 06:39 | NUR ---
EOSS N: Still lethargic, noticeably more alert than previous shift. R: RA, saturating well. CV: NSR GI/: Ambulates 1x assist, mild weakness BLE, slow movements. Bed alarm placed due to pt's unsteady gait. Pt has been seen by PT already. Uses urinal as well. POC: DC today per Dr. Stoner
[2018-09-21] MEDS: CHLORDIAZEPOXIDE 25 MG CAP PO SCH (08:34)
[2018-09-21] MEDS: THIAMINE 100 MG TAB PO SCH (08:34)
[2018-09-21] MEDS: MULTIVITAMINS 10 ML, FOLIC ACID 1 MG in SOD CHLORIDE 0.9% 1,000 ML IVPB SCH (08:35)
--- NOTE | 2018-09-21 10:54 | NUR ---
PT NOTE [facility] Patient: Darnell Peraza : 1975 Age/Sex: 43/M Unit#: [id number] Room/Bed: 610/A User: Gurdeep Malhotra PT Date: 09/21/18 10:16 Type: PT Technical Record Therapy day number 3 Subjective Potential for pain Pain Scale FACES Pain Intensity 0 (0-10) Patient Stated Goal for Pain Relief 0 (0-10) Pain Level Comment no indication of pain Pre Treatment Vital Signs Stable Yes Transfer Training Start Time 10:16 Supine to Sit Minimum Assist Transfer Sit to Stand Ability Stand by Assist Bed Mobility Sit to Supine Minimum Assist Bed Transfer Ability Minimum Assist Chair Transfer Ability Minimum Assist Sitting Tolerance 15 min Additional Mobility Comments verbal cues for safety/hand placement Transfer Training End Time 10:40 Total Transfer Training Time 24 min (8-127) Patient uses wheelchair Not Applicable Gait Training Start Time 10:40 Gait Assist Levels Stand by Assist Assistive Devices Front Wheel Walker Ambulation Distance 18 feet Additional Gait Comments very very slow farshad, verbal cues to continue, decreased step length/heel Gait Training End Time 10:54 Total Gait Training Treatment Time 14 min (8-127) Static Sitting Balance Fair plus Dynamic Sitting Balance Fair plus Standing Static Balance Fair Dynamic Standing Balance Fair Additional Balance Assessments Comments FWW Safety Judgement Poor Activity Tolerance Fair Equipment Present A pump Post Treatment Pain Intensity 0 0-10 Total Treament Time 38 min (8-127) Total Minutes 38 Total Units 3 PT Technical Record Comment S: Pt very slow-moving, requires frequent verbal cues to continue with tasks, appears very fatigued O: RN Shade cleared pt for PT session. Pt received semi-supine in bed, sleeping, easy roused. Pt participated in interventions above, able to amb to restroom with SBA, very very slow farshad, frequent verbal cues to continue, no instances of LOB. Pt able to toilet with SPV. Pt returned to bed, all needs in reach, no signs of distress, bed alarm activated. RN notified of pt's status. A: Pt demonstrates improved activity tolernace, able to amb 18' x 2 with FWW and without assistance, though requires frequent verbal cues to continue/safety. Continues to require min assistance for OOB, stating "I'm weak," demonstrating weakness vs. malingering. P: Continue c PT POC; increase gait distance as tolerated
[2018-09-21] MEDS ORDERED: POTASSIUM CHLORIDE 20 MEQ POWDER FOR ORAL SOLN PO ONE (11:00)
[2018-09-21] MEDS ORDERED: MAGNESIUM SULFATE 2 GM/50 ML 50 ML IVPB ONE (12:00)
--- NOTE | 2018-09-21 15:08 | PN ---
Date/Time of Note Date/Time of Note DATE: 09/21/18 TIME: 15:07 Assessment/Plan VTE Prophylaxis [place] [facility] [place]: 4 [place]CD applied [place] [facility] [place] Yes Pharmacological prophylaxis: NA/contraindicated Pharm contraindication: low risk/ambulating Lines/Catheters IV Catheter Type (from [facility]): Peripheral IV Assessment/Plan Hospital Course # Alcoholic intoxication - BAL significantly elevated on admission - Patient was started on Librium on admission; now tapering. - Currently no S/Sx of withdrawal # Generalized and lower extremity weakness. 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 # Decompensated alcoholic liver cirrhosis, with pancytopenia and previous labs showing coagulopathy - Advised patient on alcohol cessation. # Pancytopenia: Alcohol/cirrhosis related -No need for transfusion at this time # Alcohol abuse and homelessness -Abstinence from alcohol will be reinforced throughout hospitalization Result Diagram: 09/21/18 0906 09/21/18 0906 Results 24hrs Laboratory Tests Test 09/21/18 09:06 White Blood Count 2.2 L Red Blood Count 3.88 L Hemoglobin 10.2 L Hematocrit 31.5 L Mean Corpuscular Volume 81.2 L Mean Corpuscular Hemoglobin 26.3 L Mean Corpuscular Hemoglobin Concent 32.4 Red Cell Distribution Width 17.7 H Platelet Count 28 #*L Mean Platelet Volume Immature Granulocytes % 0.000 L Neutrophils % 51.9 Lymphocytes % 32.4 Monocytes % 12.0 H Eosinophils % 3.2 Basophils % 0.5 Nucleated Red Blood Cells % 0.0 Immature Granulocytes # 0.000 Neutrophils # 1.1 L Lymphocytes # 0.7 L Monocytes # 0.3 Eosinophils # 0.1 Basophils # 0.0 Nucleated Red Blood Cells # 0.0 Sodium Level 138 Potassium Level 3.1 L Chloride Level 107 Carbon Dioxide Level 22 Anion Gap 9 Blood Urea Nitrogen 4 L Creatinine 0.47 L Est Glomerular Filtrat Rate mL/min > 60 Glucose Level 133 Calcium Level 7.8 L Total Bilirubin 1.6 H Direct Bilirubin 0.30 H Indirect Bilirubin 1.3 H Aspartate Amino Transf (AST/SGOT) 129 H Alanine Aminotransferase (ALT/SGPT) 84 H Alkaline Phosphatase 219 H Total Protein 6.9 Albumin 2.9 L Globulin 4.00 H Albumin/Globulin Ratio 0.72 Subjective 24 Hr Interval Summary Free Text/Dictation The patient still has significant mental slowing. Muscle weakness if significantly improved; he can stand and walk with minimal assistance for short distances. Exam/Review of Systems Vital Signs Vitals Vital Signs Date Temp Pulse Resp B/P (MAP) Pulse Ox O2 O2 Flow FiO2 Time Delivery Rate 09/21/18 113 12:29 09/21/18 98.6 20 136/82 96 Room Air 11:24 (100) Intake and Output 09/20/18 09/20/18 09/21/18 1515:00 23:00 07:00 IntakeIntake Total 1575 ml 1625 ml OutputOutput Total 1200 ml 1350 ml BalanceBalance 375 ml 275 ml Exam Gen: Overweight man in no acute distress, very poorly groomed, sitting up in bed eating lunch. Head: No abrasions, atraumatic. Eyes: Mild icterus, no injection. ENT: Normal External Ears, Nose and Mouth. Resp: Clear to auscultation bilaterally Cardio:S1, S2, no murmurs Abd: Soft, non tender, non distended. Normal bowel sounds Ext: No lower extremity edema bilaterally Neuro: No tongue fasciculations or tremors. Medications Medications Current Medications IV Flush (NS 3 ml) 3 ml PER PROTOCOL IV ; Start 09/18/18 at 07:00 Ondansetron HCl (Zofran Inj) 4 mg Q6H PRN IV NAUSEA AND/OR VOMITING Last administered on 09/19/18at 17:48; Admin Dose 4 MG; Start 09/18/18 at 07:00 Acetaminophen (Tylenol Tab) 650 mg Q6H PRN PO PAIN LEVEL 1-3 OR FEVER Last administered on 09/20/18at 14:02; Admin Dose 650 MG; Start 09/18/18 at 07:00 Thiamine HCl (Vitamin B1) 100 mg DAILY PO Last administered on 09/21/18at 08:34; Admin Dose 100 MG; Start 09/18/18 at 09:00 Lorazepam (Ativan) 1 mg Q3H PRN IV ANXIETY; Start 09/18/18 at 07:00 Lorazepam (Ativan) 2 mg Q2H PRN IV ETOH W/D; Start 09/18/18 at 07:00 Chlordiazepoxide (Librium) 50 mg BID PO Last administered on 09/21/18at 08:34; Admin Dose 50 MG; Start 09/19/18 at 21:00 BRISA KIMBLE MD Sep 21, 2018 15:08
--- NOTE | 2018-09-21 19:51 | NUR ---
RN NOTE PT IN STABLE CONDITION , WAITING O TRANSFER TO 5 E WHEN BED AVAILABLE .
--- NOTE | 2018-09-21 21:05 | NUR ---
2105: Patient hemodynamically stable for transfer. No neuro changes. no signs of respiratory distress. Report given to Ester RN in 5east.
[2018-09-22] MEDS: ONDANSETRON 4 MG INJ IV PRN (00:27)
[2018-09-22 02:42] VITALS: BP 135/71; PULSE 93; RESP 20
--- NOTE | 2018-09-22 06:46 | NUR ---
Shift summary: Patient is a transfer from Telemetry floor, he arrived via wheel chair. Patient is alert and oriented X4. No obvious signs of ETOH withdrawal noted. Patient has distended abdomen., skin is intact. He walked to the bathroom with one person assist. Patient denies pain. discharge plan today.
[2018-09-22 08:09] VITALS: BP 131/78; PULSE 88; RESP 18
[2018-09-22] MEDS: THIAMINE 100 MG TAB PO SCH (08:56)
[2018-09-22] MEDS: ACETAMINOPHEN 325 MG TAB PO PRN (09:02)
[2018-09-22] MEDS ORDERED: POTASSIUM CHLORIDE 20 MEQ POWDER FOR ORAL SOLN PO ONE (12:00)
--- NOTE | 2018-09-22 12:30 | NUR ---
SS Note: F/U & D/C Planning Pt previously seen by SS on 09/18/17 for initial assessment. See previous notes. This chief underwriter f/u with pt to finalize d/c as there is a possibility he will be medically cleared for d/c today. Pt awake, alert, and oriented x4. SW discussed homeless placement options such as the [facility] the [facility] and [address] [place] [address] Referral Hotline. Pt agreed to go to the [facility] the [facility] and is accepting bus tokens. Pt completed the Discharge Consent By Patient Without Permanent Address form. SW reviewed address and sweet pickle maker times for the retirement. SW placed two bus tokens in pt's chart for RN to provide to pt upon d/c. Pt has clothing in his belongings.
--- NOTE | 2018-09-22 13:26 | PDOCDIS ---
Discharge Instructions DIAGNOSIS Discharge Diagnosis Alcohol myopathy CONDITION [id number] Patient Condition: [id number] Good HOME CARE INSTRUCTIONS: [id number] Diet Instructions: [id number] Regular ACTIVITY: [id number] Activity Restrictions: [id number] No Restrictions FOLLOW UP/APPOINTMENTS Follow-up Plan 1. Abstain from alcohol 2. Return to the ED if you develop difficulty breathing, pressure-like chest pain that does not improve with rest, or blood in your vomit or stools. BRISA KIMBLE MD Sep 22, 2018 13:25
[2018-09-22 14:00] VITALS: BP 133/77; PULSE 102; RESP 18
--- NOTE | 2018-09-22 15:25 | NUR ---
[facility] Instructions to pt given with FLAKITO Pearson. All belongings with pt. Ambulates by himself. All needs attended.
--- NOTE | 2018-09-22 17:54 | DS ---
Date/Time of Note Date/Time of Note DATE: 09/22/18 TIME: 17:50 Discharge Summary Admission/Discharge Info Admit Date/Time Sep 18, 2018 at 04:18 Discharge Date/Time Sep 22, 2018 at 15:17 Discharge Diagnosis Alcohol myopathy Patient Condition: Fair Hx of Present Illness 43-year-old homeless male with known history of alcohol abuse, alcoholic liver cirrhosis and EtOH related pancytopenia. Patient was found intoxicated on the street. He complains of abdominal pain, vomiting, generalized weakness and difficulty with ambulation. Currently patient is drowsy/lethargic, but somehow arousable. He complains of headache and generalized weakness and abdominal pain. He also reported having had vomiting. He said he has been drinking almost on a daily basis. The patient has been admitted here and had multiple ER visits related to alcohol. Last hospitalization was about 3 months ago. In the ER, blood alcohol level was found to be elevated. He is still pancytopenic with abnormal liver chemistries. Patient was given IV fluid and Ativan in the ER. Hospital Course The patient was given a Librium taper; had no withdrawal symptoms and required no Ativan. He had profound muscle weakness which gradually improved over the hospital course. Severe thrombocytopenia <50 but no platelet transfusions required. [facility] was [facility] to [facility]. Home Meds Active Scripts Ondansetron Hcl* (Zofran*) 4 Mg Tablet, 4 MG PO Q6H PRN for NAUSEA AND OR VOMITING, #12 TAB Prov:HERON FRANCIS MD 09/17/18 Pantoprazole* (Protonix*) 40 Mg Tablet.dr, 40 MG PO DAILY, #30 TAB 2 Refills Prov:STEPHANIE PRINCE 06/20/18 Propranolol Hcl* (Propranolol Hcl*) 20 Mg Tablet, 20 MG PO TID, #90 TAB 3 Refills Prov:STEPHANIE PRINCE 06/20/18 Thiamine* (Thiamine*) 100 Mg Tablet, 100 MG PO DAILY, #30 TAB 2 Refills Prov:STEPHANIE PRINCE 06/20/18 Folic Acid* (Folic Acid*) 1 Mg Tablet, 1 MG PO DAILY, #30 TAB 2 Refills Prov:STEPHANIE PRINCE 06/20/18 Acetaminophen* (Tylenol*) 325 Mg Tablet, 650 MG PO Q6H PRN for PAIN LEVEL 1-3 OR FEVER, #30 TAB Prov:STEPHANIE PRINCE 06/20/18 Follow-up Plan 1. Abstain from alcohol 2. Return to the ED if you develop difficulty breathing, pressure-like chest pain that does not improve with rest, or blood in your vomit or stools. Primary Care Provider Care Physician No Primary Time spent on discharge: > 30 minutes Pending Labs Laboratory Tests Test 09/22/18 09:37 White Blood Count 2.1 10^3/ul (4.8-10.8) Red Blood Count 4.10 10^6/ul (4.70-6.10) Hemoglobin 10.7 g/dl (14.0-18.0) Hematocrit 33.7 % (42.0-52.0) Mean Corpuscular Volume 82.2 fl (82.0-101.0) Mean Corpuscular Hemoglobin 26.1 pg (29.0-33.0) Mean Corpuscular Hemoglobin Concent 31.8 g/dl (32.0-37.0) Red Cell Distribution Width 18.0 % (11.5-14.5) Platelet Count 34 10^3/UL (140-415) Mean Platelet Volume fl (7.4-10.4) Immature Granulocytes % 0.000 % (0.001-0.429) Neutrophils % % (39.0-77.0) Segmented Neutrophils % (Manual) 51 % (39-77) Band Neutrophils % (Manual) 1 % (0-4) Lymphocytes % % (15.0-51.0) Lymphocytes % (Manual) 37 % (15-51) Reactive Lymphocytes % (Manual) 2 % (0-0) Monocytes % % (0.0-11.0) Monocytes % (Manual) 8 % (0-11) Eosinophils % % (0.0-7.0) Basophils % % (0.0-2.0) Basophils % (Manual) 1 % (0-2) Nucleated Red Blood Cells % 0.0 /100WBC (0.0-0.0) Immature Granulocytes # 0.000 10^3/ul (0.0-0.031) Neutrophils # 10^3/ul (1.6-7.5) Neutrophils # (Manual) 1.1 10^3/ul (1.6-7.5) Band Neutrophils # 0.0 10^3/ul (0.0-0.6) Lymphocytes (Manual) 0.7 10^3/ul (0.8-2.9) Lymphocytes # 10^3/ul (0.8-2.9) Reactive Lymphocytes # 0.0 10^3/ul (0.0-0.0) Monocytes # 10^3/ul (0.3-0.9) Monocytes # (Manual) 0.1 10^3/ul (0.3-0.9) Eosinophils # 10^3/ul (0.0-0.5) Basophils # 10^3/ul (0.0-0.1) Basophils # (Manual) 0.0 10^3/ul (0.0-0.0) Nucleated Red Blood Cells # 10^3/ul (0.0-0.0) Platelet Estimate SIG DECREASED Giant Platelets 2 % (0-0) Polychromasia 1+ (0-0) Poikilocytosis 1+ (0-0) Anisocytosis 1+ (0-0) Microcytosis 1+ (0-0) Macrocytosis 1+ (0-0) Elliptocytes 1+ (0-0) Sodium Level 138 mmol/L (135-144) Potassium Level 3.3 mmol/L (3.5-5.1) Chloride Level 104 mmol/L (97-110) Carbon Dioxide Level 24 mmol/L (21-31) Anion Gap 10 (5-13) Blood Urea Nitrogen 5 mg/dl (7-20) Creatinine 0.52 mg/dl (0.61-1.24) Est Glomerular Filtrat Rate mL/min > 60 mL/min (>60) Glucose Level 139 mg/dl (70-220) Calcium Level 8.2 mg/dl (8.4-10.2) Phosphorus Level 3.7 mg/dl (2.5-4.9) Magnesium Level 1.9 mg/dl (1.7-2.5) Total Bilirubin 1.6 mg/dl (0.2-1.3) Direct Bilirubin 0.30 mg/dl (0.00-0.20) Indirect Bilirubin 1.3 mg/dl (0-1.1) Aspartate Amino Transf (AST/SGOT) 106 IU/L (15-46) Alanine Aminotransferase (ALT/SGPT) 77 IU/L (13-69) Alkaline Phosphatase 243 IU/L (42-121) Total Protein 7.0 g/dl (6.1-8.1) Albumin 3.0 g/dl (3.3-4.9) Globulin 4.00 g/dl (1.3-3.2) Albumin/Globulin Ratio 0.75 BRISA KIMBLE MD Sep 22, 2018 17:54
== END 2018-09-22 15:17 | disposition home or self-care (01) | DRG 897 ==
LOC: E/R 14:46 → 6WM 09-18 04:18 → 5EC 09-21 21:47
PROVIDERS: ADMIT Internal Medicine; ATTEND Internal Medicine
DX: F10.129 Alcohol abuse with intoxication, unspecified (principal); D61.818 Other pancytopenia; F10.239 Alcohol dependence with withdrawal, unspecified; K70.30 Alcoholic cirrhosis of liver without ascites; Y90.7 Blood alcohol level of 200-239 mg/100 ml; M62.81 Muscle weakness (generalized); Z59.0 Homelessness
CPT/HCPCS: 73510; 73550; 80053; 80307; 83735; 84100; 85025; 85610; 85730; 96372; 97116; 97161; 97530; J2060; J2405; J3475; J7030; J7042